=== PATIENT | male | born 1980 | race Caucasian/White ===

== ENCOUNTER 2020-09-09 22:43 | Emergency (ER) | payer SELFPAY ==
[~2020-09-09] VITALS: Ht 180.3 cm; Wt 99.8 kg
[2020-09-09 22:45] VITALS: BP 165/109
--- NOTE | 2020-09-09 22:45 | NUR ---
TO BED AMBULATORY
--- NOTE | 2020-09-09 23:28 | NUR ---
39 Y/O MALE C/O CHEST PAIN. WITH SOB, DIFFICULTY BREATHING WITH DIZZINESS. PT STATES STABBING 9/10 PAIN. LUNG SOUNDS CLEAR. VSS. MEDHX: DM, HTN NKA
--- NOTE | 2020-09-10 00:02 | NUR ---
Dr. Montesinos examining patient.
[2020-09-10] MEDS ORDERED: KETOROLAC 60 MG/2 ML VIAL IM ONE (00:05)
[2020-09-10] MEDS ORDERED: ACET-8386 PO (00:26)
[2020-09-10 00:52] VITALS: BP 145/91
--- NOTE | 2020-09-10 00:52 | NUR ---
Patient discharged with v/s stable. Written and verbal after care instructions given and explained. Patient alert, oriented and verbalized understanding of instructions. Ambulatory with steady gait. All questions addressed prior to discharge. ID band removed. Patient advised to follow up with PMD. Rx of HYDROCODONE-ACETAMINOPHEN given. Patient educated on indication of medication including possible reaction and side effects. Opportunity to ask questions provided and answered.
== END 2020-09-10 00:52 | disposition home or self-care (01) ==
LOC: MED 22:43
DX: R07.9 Chest pain, unspecified (principal); E11.9 Type 2 diabetes mellitus without complications; I10 Essential (primary) hypertension
CPT/HCPCS: 93005; 96372; 99283; J1885

== ENCOUNTER 2020-11-03 13:06 | Emergency (ER) | payer MEDICAID ==
[~2020-11-03] VITALS: Ht 180.3 cm; Wt 104.8 kg
[~2020-11-03 13:06] MED LIST: ACET-8386 PO
[2020-11-03 13:15] VITALS: BP 143/97
--- NOTE | 2020-11-03 13:18 | NUR ---
PT AMBULATED TO BED 3.
--- NOTE | 2020-11-03 13:21 | NUR ---
Dr. Reynolds is evaluating the patient at bedside.
--- NOTE | 2020-11-03 13:27 | NUR ---
40/MALE C/O RIGHT HAND PAIN X1 WEEK AFTER PUNCHING A CAR DOOR SEVERAL TIMES. STATES PAIN IS 9/10 THAT RADIATES FROM ENTIRE HAND TO ELBOW. STATES "ONLY FEELS PAIN WHEN HOLD/GRIPPING AN OBJECT" HX HTN, DM, HIGH CHOLESTEROL
--- NOTE | 2020-11-03 13:32 | NUR ---
XRAY PERFORMED BEDSIDE
[2020-11-03] MEDS ORDERED: IBUPROFEN 600 MG TAB PO ONE (13:45)
--- NOTE | 2020-11-03 13:57 | NUR ---
Dr. Reynolds is reevaluating the patient at bedside.
[2020-11-03 14:03] VITALS: BP 143/97
--- NOTE | 2020-11-03 14:04 | NUR ---
Patient discharged with v/s stable. Written and verbal after care instructions given and explained. Patient verbalized understanding. Ambulatory with steady gait. All questions addressed prior to discharge. Advised to follow up with PMD.
== END 2020-11-03 14:04 | disposition home or self-care (01) ==
LOC: MED 13:06
DX: M25.531 Pain in right wrist (principal); E11.9 Type 2 diabetes mellitus without complications; I10 Essential (primary) hypertension; E78.00 Pure hypercholesterolemia, unspecified
CPT/HCPCS: 73100; 73120; 99284

== ENCOUNTER 2021-05-15 17:33 | Emergency (ER) | payer MEDICAID ==
--- NOTE | 2021-05-15 18:01 | NUR ---
No answer for triage
--- NOTE | 2021-05-15 18:15 | NUR ---
No answer x 2
--- NOTE | 2021-05-15 18:34 | NUR ---
PATIENT LEFT WITHOUT BEING SEEN BY DR. Morin. NO FURTHER CARE PROVIDED FOR PATIENT.
== END 2021-05-15 18:01 | disposition left against medical advice (07) ==
LOC: MED 17:33
DX: Z53.21 Procedure and treatment not carried out due to patient leaving prior to being seen by health care provider (principal)

== ENCOUNTER 2023-05-11 03:41 | Inpatient (IN) | payer MEDICAID ==
[~2023-05-11] VITALS: Ht 172.7 cm; Wt 126.1 kg
[~2023-05-11 03:41] MED LIST changes: -ACET-8386 PO; +ACET-8905 PO
[2023-05-11 03:42] VITALS: BP 160/108; PULSE 115; RESP 28; TEMP 97.4; O2SAT 93
[2023-05-11] MEDS ORDERED: FUROSEMIDE 40 MG/4 ML VIAL IVP ONE (03:45)
[2023-05-11 04:00] VITALS: O2SAT 98
[2023-05-11 04:16] LABS: BASOPHILS % (AUTO) 0.4 % (0.0-2.0); EOSINOPHILS # (AUTO) 0.1 K/uL (0-0.4); EOSINOPHILS % (AUTO) 1.4 % (0.0-4.0); HEMATOCRIT 39.3 % (36-52); HEMOGLOBIN 13.2 g/dL (12.0-18.0); LYMPHOCYTES # (AUTO) 1.4 K/uL (2.0-11.5); LYMPHOCYTES % (AUTO) 13.8 % (20.5-51.1); MEAN CORPUSCULAR HEMOGLOBIN 29 pg (27-31); MEAN CORPUSCULAR HGB CONC 34 g/dL (33-37); MEAN CORPUSCULAR VOLUME 86.3 fL (80-94); MONOCYTES # (AUTO) 0.9 K/uL (0.8-1.0); MONOCYTES % (AUTO) 8.5 % (1.7-9.3); NEUTROPHILS # (AUTO) 7.8 K/uL (1.8-7.7); NEUTROPHILS % (AUTO) 75.9 % (42.2-75.2); PLATELET COUNT (AUTO) 180 K/uL (140-450); RED BLOOD CELL COUNT(AUTO) 4.55 MIL/uL (4.20-6.10); RED CELL DISTRIBUTION WIDTH 14.9 % (11.6-13.7); WHITE BLOOD COUNT (AUTO) 10.2 K/uL (4.8-10.8)
[2023-05-11 04:28] LABS: ANION GAP 9.2 (8-16); CALCIUM 8.8 mg/dL (8.5-10.1); CARBON DIOXIDE 29.6 mmol/L (21-32); CREATININE 1.2 mg/dL (0.6-1.3); POTASSIUM 3.8 mmol/L (3.5-5.1)
[2023-05-11 05:26] LABS: AMPHETAMINE, URINE POSITIVE ng/ml (NEG <=1000); BARBITURATE, URINE NEGATIVE ng/ml (NEG <=200); BENZODIAZEPINE, URINE NEGATIVE ng/mL (NEG <=200); CANNABINOID, URINE NEGATIVE ng/mL (NEG <=50); COCAINE, URINE NEGATIVE ng/mL (NEG <=300); OPIATE, URINE NEGATIVE ng/mL (NEG <=2000); PHENCYCLIDINE SCREEN,URINE NEGATIVE ng/mL (NEG <=25)
[2023-05-11] MEDS ORDERED: ASPIRIN 325 MG TAB PO ONE (05:35)
[2023-05-11] MEDS ORDERED: ONDANSETRON 4 MG/2 ML VIAL IVP PRN (06:05)
[2023-05-11] MEDS ORDERED: LEVALBUTEROL 0.63 MG/3 ML NEBU INH PRN (06:05)
[2023-05-11] MEDS ORDERED: hydrALAZINE 20 MG/ML VIAL IVP PRN (06:15)
[2023-05-11] MEDS ORDERED: CARV6.25 PO (06:29)
[2023-05-11] MEDS ORDERED: ISOS40TA PO (06:29)
[2023-05-11] MEDS ORDERED: FURO-570 PO (06:29)
[2023-05-11] MEDS ORDERED: ASPI-1822 PO (06:29)
[2023-05-11] MEDS ORDERED: SPIR50TA PO (06:29)
[2023-05-11] MEDS ORDERED: ENOXAPARIN 40 MG/0.4 ML SYR SUBQ SCH (09:00)
[2023-05-11] MEDS: FUROSEMIDE 40 MG/4 ML VIAL IVP SCH (09:18)
[2023-05-11] MEDS: ENOXAPARIN 40 MG/0.4 ML SYR SUBQ SCH (10:48)
[2023-05-11 16:00] VITALS: PULSE 74; RESP 16; O2SAT 98
[2023-05-11 20:00] VITALS: BP 144/95; PULSE 74; PULSE 86; RESP 19; RESP 20; TEMP 97.5; O2SAT 98
[2023-05-11 20:43] VITALS: PULSE 73; RESP 20; O2SAT 98
[2023-05-12] VITALS (8 sets, daily range): BP systolic 130–147; BP diastolic 87–106; PULSE 54–97; RESP 18–21; TEMP 96.9–98; O2SAT 95–99
[2023-05-12 05:20] LABS: BASOPHILS % (AUTO) 0.2 % (0.0-2.0); EOSINOPHILS # (AUTO) 0.3 K/uL (0-0.4); EOSINOPHILS % (AUTO) 3.2 % (0.0-4.0); HEMOGLOBIN 13.6 g/dL (12.0-18.0); LYMPHOCYTES # (AUTO) 2.6 K/uL (2.0-11.5); LYMPHOCYTES % (AUTO) 28.6 % (20.5-51.1); MEAN CORPUSCULAR HEMOGLOBIN 29 pg (27-31); MEAN CORPUSCULAR HGB CONC 33 g/dL (33-37); MONOCYTES # (AUTO) 0.8 K/uL (0.8-1.0); NEUTROPHILS # (AUTO) 5.3 K/uL (1.8-7.7); PLATELET COUNT (AUTO) 182 K/uL (140-450); RED BLOOD CELL COUNT(AUTO) 4.71 MIL/uL (4.20-6.10)
[2023-05-12 08:11] LABS: CALCIUM 8.7 mg/dL (8.5-10.1); CARBON DIOXIDE 26.5 mmol/L (21-32); CREATININE 1.1 mg/dL (0.6-1.3); POTASSIUM 3.5 mmol/L (3.5-5.1)
[2023-05-12] MEDS: FUROSEMIDE 40 MG/4 ML VIAL IVP SCH ×2 (08:34→18:43)
[2023-05-12] MEDS: ENOXAPARIN 40 MG/0.4 ML SYR SUBQ SCH (08:35)
[2023-05-13] VITALS: BP 137/85; PULSE 86; RESP 20; TEMP 98.4; O2SAT 97
[2023-05-13 04:00] VITALS: BP 142/83; PULSE 88; PULSE 90; RESP 18; TEMP 97.8; O2SAT 98
[2023-05-13 05:08] LABS: BASOPHILS % (AUTO) 0.4 % (0.0-2.0); EOSINOPHILS # (AUTO) 0.2 K/uL (0-0.4); EOSINOPHILS % (AUTO) 2.5 % (0.0-4.0); HEMATOCRIT 43.6 % (36-52); HEMOGLOBIN 14.7 g/dL (12.0-18.0); LYMPHOCYTES # (AUTO) 2.5 K/uL (2.0-11.5); LYMPHOCYTES % (AUTO) 25.3 % (20.5-51.1); MEAN CORPUSCULAR HEMOGLOBIN 29 pg (27-31); MEAN CORPUSCULAR HGB CONC 34 g/dL (33-37); MEAN CORPUSCULAR VOLUME 86.1 fL (80-94); MONOCYTES % (AUTO) 10.5 % (1.7-9.3); NEUTROPHILS # (AUTO) 6.1 K/uL (1.8-7.7); NEUTROPHILS % (AUTO) 61.3 % (42.2-75.2); PLATELET COUNT (AUTO) 189 K/uL (140-450); RED BLOOD CELL COUNT(AUTO) 5.06 MIL/uL (4.20-6.10); RED CELL DISTRIBUTION WIDTH 15.1 % (11.6-13.7); WHITE BLOOD COUNT (AUTO) 9.9 K/uL (4.8-10.8)
[2023-05-13 05:21] LABS: ANION GAP 8.5 (8-16); CALCIUM 8.9 mg/dL (8.5-10.1); CARBON DIOXIDE 31.2 mmol/L (21-32); POTASSIUM 3.7 mmol/L (3.5-5.1)
[2023-05-13] MEDS: ACETAMINOPHEN 325 MG TAB PO PRN ×2 (05:25→13:43)
[2023-05-13 08:00] VITALS: BP_SYST 137; BP_SYST 142; BP_DIAS 83; BP_DIAS 98; PULSE 71; PULSE 74; PULSE 88; RESP 18; TEMP 97; TEMP 97.8; O2SAT 97; O2SAT 98
[2023-05-13] MEDS: FUROSEMIDE 40 MG/4 ML VIAL IVP SCH (09:50)
[2023-05-13] MEDS: ENOXAPARIN 40 MG/0.4 ML SYR SUBQ SCH (09:57)
[2023-05-13 12:00] VITALS: BP 125/86; PULSE 73; PULSE 92; RESP 18; TEMP 97.4; O2SAT 97
[2023-05-13 13:55] VITALS: O2SAT 98
[2023-05-13 15:23] VITALS: BP 125/86; PULSE 73; RESP 18; TEMP 97.4
[2023-05-13] MEDS ORDERED: FURO40TA9 PO (16:08)
[2023-05-13] MEDS ORDERED: ISOS40TA PO (16:08)
[2023-05-13] MEDS ORDERED: CARV6.25 PO (16:08)
[2023-05-13] MEDS ORDERED: SPIR25TA PO (16:08)
[2023-05-13] MEDS ORDERED: ASPI-1822 PO (16:08)
== END 2023-05-13 16:25 | disposition home or self-care (01) | DRG 133 ==
LOC: MED 03:41 → MMU 06:04 → MTU 13:24
PROVIDERS: ADMIT Family Medicine; ATTEND Family Medicine
DX: J96.01 Acute respiratory failure with hypoxia (principal); I21.A1 Myocardial infarction type 2; I50.23 Acute on chronic systolic (congestive) heart failure; I42.0 Dilated cardiomyopathy; R65.10 Systemic inflammatory response syndrome (SIRS) of non-infectious origin without acute organ dysfunction; I11.0 Hypertensive heart disease with heart failure; E11.9 Type 2 diabetes mellitus without complications; F32.A Depression, unspecified; E66.9 Obesity, unspecified; Z60.2 Problems related to living alone; F15.10 Other stimulant abuse, uncomplicated; Z79.899 Other long term (current) drug therapy; Z68.41 Body mass index [BMI] 40.0-44.9, adult; Z91.198 Patient's noncompliance with other medical treatment and regimen for other reason; Z79.82 Long term (current) use of aspirin
CPT/HCPCS: 36415; 71045; 80048; 80305; 83880; 84484; 85025; 87081; 93005; 94640; 96374; 99291; J1650; J1940; Q0092